=== PATIENT | female | born 1990 | race Caucasian/White ===

== ENCOUNTER 2017-11-21 08:59 | Emergency (ER) | payer MEDICAID, SELFPAY ==
[2017-11-21 08:59] VITALS: BP 146/99; PULSE 86; RESP 18; TEMP 36.6; O2SAT 97; BMI 32.5
--- NOTE | 2017-11-21 09:15 | ED.DCSUM_ITS ---
- ER Visit Summary Date of Service: 11/21/17 Chief Complaint: Right ear and jaw pain History of Present Illness: The patient is a 27 F who presents with pain in her right ear radiating to her right jaw. No exacerbating or relieving factors. It is not worse with swallowing. She tried ibuprofen with little relief. She denies any associated symptoms. No URI-like illness. No congestion rhinorrhea sore throat. No cough. Physical Examination: Afebrile vitals are stable Tympanic membranes are clear Widespread dental decay with focal decay and tenderness on percussion of the right second mandibular molar no focal abscess amenable to incision and drainage Heart regular rate and rhythm Lungs are clear Test Results: Not indicated Emergency Department Course and Treatment: I believe the patient's ear pain is referred to it to a dental origin. She is very tender on percussion of the right second mandibular molar. There is no abscess amenable to incision and drainage. She was prescribed penicillin and advised to use anti-inflammatories for pain and follow-up with a dentist. Treatment Plan: [] Disposition: Discharge Impression: Odontalgia This note was generated with [employer] dictation software. It may contain incorrect words, spelling, and punctuation that were not noted in review of the chart prior to signing ED Disposition - Plan for ED Patient: Chief Complaint: Ear Problem Referrals: Care Physician,No Primary [Primary Care Provider] -
--- NOTE | 2017-11-21 09:15 | ED.DEP ---
ED Disposition - Plan for ED Patient: Chief Complaint: Ear Problem Instructions: ED Tooth Pain Prescriptions: Penicillin V Potassium 500 mg PO 4X/DAY #40 tab Referrals: Care Physician,No Primary [Primary Care Provider] -
[2017-11-21 09:32] VITALS: PULSE 89; RESP 22
--- NOTE | 2017-11-21 09:35 | ED.RN ---
THIS NURSE REVIEWED D/C INSTRUCTIONS WITH PT. PT VERBALIZED UNDERSTANDING OF INSTRUCTIONS. PT DENIES FURTHER NEEDS OR QUESTIONS AT THIS TIME. PT AMBULATES FROM ROOM ON OWN WITHOUT ASSISTANCE FROM STAFF
== END 2017-11-21 09:36 | disposition home or self-care (01) ==
PROVIDERS: Emergency Provider Emergency Medicine
DX: K08.89 Other specified disorders of teeth and supporting structures (principal); K02.9 Dental caries, unspecified
CPT/HCPCS: 99282

== ENCOUNTER 2019-07-09 16:52 | Emergency (ER) | payer MEDICAID, SELFPAY ==
[2019-07-09 16:54] VITALS: BP 119/73; PULSE 97; RESP 16; TEMP 36.9; O2SAT 98; BMI 34.4
--- NOTE | 2019-07-09 17:07 | ED.DCSUM_ITS ---
- ER Visit Summary Date of Service: 07/09/19 Chief Complaint: [Injury to left hand] History of Present Illness: The patient is a 29 F [presents to the emergency department with multiple injuries to her left hand over the course of the last week. Patient states that she initially injured her hand about a week ago when she had it smashed between a log and a cement block. Patient states the following day she accidentally hit with a hammer. Patient states that 2 days ago she accidentally caught her left hand in a bathroom door. Patient is right- hand dominant. Patient denies recent illness.] Physical Examination: [Right hand-patient has some mild soft tissue swelling over the third MCP joint. Patient has no obvious deformity. There is no ecchymosis or bruising. She is neurovascular intact. She moves all digits without difficulty.] Test Results: [X-rays of the left hand obtained read by myself is normal.] Emergency Department Course and Treatment: [Given an Víctor wrap.] Treatment Plan: [Patient to follow-up with primary care physician in 5 to 7 days.] Disposition: [Discharged home in stable condition.] Impression: [Contusion left hand] This note was generated with [employer] dictation software. It may contain incorrect words, spelling, and punctuation that were not noted in review of the chart prior to signing ED Disposition - Plan for ED Patient: Referrals: Care Physician,No Primary [Primary Care Provider] -
--- NOTE | 2019-07-09 17:10 | RAD_ITS ---
STUDY: X-RAY - LEFT HAND REASON FOR EXAM: Female, 29 years old. Injury. Pain. TECHNIQUE: 3 view(s) of the hand. COMPARISON: None. FINDINGS: Normal radiocarpal articulation. Normal distal radioulnar joint. Normal visualized carpal bones. Normal carpal articulations Normal carpometacarpal articulation of the thumb. Normal second through fifth carpometacarpal joints. Normal metacarpi. Normal metacarpophalangeal joint of the thumb. Normal interphalangeal joint of the thumb. Normal proximal and distal phalanges of the thumb. Normal metacarpophalangeal joints of the second through fifth fingers. Normal proximal and distal interphalangeal joints of the second through fifth fingers. Normal phalanges of the second through fifth fingers. The soft tissue structures are unremarkable. RAD/Hand Min 3 Views IMPRESSION: Normal x-ray examination of the hand. Electronically Signed: Ham Mcmillan MD at 17:37 EDT , Service support ,
--- NOTE | 2019-07-09 17:18 | ED.DEP ---
ED Disposition - Plan for ED Patient: Instructions: CONTUSION, Hand Prescriptions: Naproxen [Naprosyn] 500 mg PO BID PRN #20 tab Prescription Printed Referrals: Care Physician,No Primary [Primary Care Provider] - Aric White MD [STAFF PHYSICIAN] - 5-7 Days
[2019-07-09 17:30] VITALS: PULSE 89; RESP 14; O2SAT 96
== END 2019-07-09 17:30 | disposition home or self-care (01) ==
LOC: ED 17:10
PROVIDERS: Emergency Provider Emergency Medicine
DX: S60.222A Contusion of left hand, initial encounter (principal); W23.0XXA Caught, crushed, jammed, or pinched between moving objects, initial encounter; Y93.9 Activity, unspecified; Y92.9 Unspecified place or not applicable; Y99.9 Unspecified external cause status
CPT/HCPCS: 73130; 99282

== ENCOUNTER 2022-12-28 10:00 | Emergency (ER) | payer MEDICAID, SELFPAY ==
[2022-12-28 10:01] VITALS: BP 109/93; PULSE 102; RESP 18; TEMP 36.6; O2SAT 100; BMI 26.6
[2022-12-28] MEDS: Tetracaine 0.5% Ophthalmic Bottle 1 DRP OPHTHALMIC (10:23)
[2022-12-28] MEDS: Fluorescein 1 MG STRIP 1 STRIP OPHTHALMIC (10:23)
--- NOTE | 2022-12-28 10:24 | EDS_ITS ---
HPI History of Present Illness Chief Complaint: Eye Problem Narrative Narrative: 32-year-old female who denies significant past medical history [facility] with right eye pain that began last evening. She awoke in the middle the night and stated that her right eye was bothering her. She denies any fevers or chills. No exudate from the eye or matting shut. No loss of vision. No exacerbating or alleviating factors. She does not wear contact lenses. She states that her right eye feels dry. Additionally, she states that she was sent to the emergency department to rule out glaucoma. PFSH PFS Medical History no medical history no medical history Home Medications naproxen 500 mg tablet 500 mg PO BID PRN #20 tabs 07/09/19 [Rx Last Taken Unknown] Allergy/AdvReac Type Severity Reaction Status Date / Time No Known Allergies Allergy Verified 12/28/22 10:03 Family History no significant family his Surgical History no surgical history Social History Smoking Status: Never smoker ROS ROS ED ROS Narrative Constitutional: No fever, no chills. HEENT: No sore throat. No neck pain. No loss of vision. No rhinorrhea. Right eye pain since last evening. Feels dry in right eye. Cardiovascular: No chest pain. No palpitations. No pedal edema. Respiratory: No cough, no shortness of breath. Abdominal: No abdominal pain. No nausea. No vomiting. Genitourinary: No dysuria. No hematuria. Musculoskeletal: No myalgias. No arthralgias. Neurologic: No headaches. No dizziness. No lightheadedness. Skin: No rash. No change in color. Psychiatric: No depression. No anxiety. EXAM Physical Exam Narrative Exam Narrative: Afebrile. Vital signs noted. HEENT: Normocephalic. Atraumatic. PERRL, EOMI. right pupil reactive to light, not fixed at midpoint, neck soft and supple. No point tenderness or step off. Cardiovascular: Regular rate and rhythm. No murmurs, rubs, or gallops appreciated. Respiratory: No tachypnea. Lungs clear to auscultation bilaterally. Gastrointestinal: Abdomen soft, nontender, with normoactive bowel sounds. No rebound or guarding. Neurological: Awake. Alert. Nonfocal, nonlateralizing. Skin: No rash. Normal color. No pallor. Musculoskeletal: No pedal edema. Full range of motion extremities. Const Vital Signs: 12/28/22 10:01 Temperature 97.9 F Temperature Source Temporal Pulse Rate 102 H Respiratory Rate 18 Blood Pressure 109/93 H Blood Pressure Mean 98 Pulse Ox 100 Oxygen Delivery Method Room Air MDM MDM MDM Narrative Medical decision making narrative: Given the reactivity of her right pupil, I do feel the glaucoma is less likely. She may have foreign body. Tetracaine will be instilled in the right eye and visual acuity obtained. I will also administer fluorescein and attempt Kamari-Pen reading. Examination under fluorescein shows no evidence of foreign body, negative Yovany sign. Kamari-Pen examination revealed intraocular pressures of 13 and 16, but was mildly limited secondary to the patient's full inability to tolerate the procedure. I will discuss the patient with ophthalmology, Dr. Medley for close follow-up. He states that he will see her later today, and the RN is arranging with his desktop support engineer the time for her to be seen. I stressed the importance of follow-up today with him to the patient. At this point in time, I do feel she can be discharged safely home with follow-up to the specialist. Return instructions to the emergency department were reviewed. Disposition is discharged home in stable condition. History & Record Review Discussion w/independent historian: Patient Additional record(s) reviewed:: Prior ED visit Discharge Plan Triage Chief Complaint: Eye Problem ED Provider: Jony Hart Dx/Rx/DC Orders Clinical Impression: Acute right eye pain Instructions: ED Pain, Acute, Uncertain Cause Prescriptions: No Action naproxen 500 MG tablet 500 mg PO BID PRN Qty: 20 0RF Primary Care Provider: Care Physician,No Primary Referrals: Timi Delgado MD [Med Staff - Active Staff] - As soon as possible Care Physician,No Primary [Primary Care Provider] - Activity Restrictions/Additional Instructions: Go to Dr. Medley today Disposition Disposition: Home, Self Care
== END 2022-12-28 10:58 | disposition home or self-care (01) ==
LOC: ED 10:48
PROVIDERS: Emergency Provider Emergency Medicine; Visit Provider Emergency Medicine
DX: H57.11 Ocular pain, right eye (principal)
CPT/HCPCS: 99282

== ENCOUNTER 2023-03-19 09:27 | Observation (INO) | payer MEDICAID, SELFPAY ==
[2023-03-19] VITALS (10 sets, daily range): BP systolic 99–109; BP diastolic 65–85; PULSE 88–116; RESP 14–18; TEMP 36.1–36.9; O2SAT 95–100; BMI 26.4; BMI 25.9
--- NOTE | 2023-03-19 10:20 | EX.ED.DYSGE1 ---
HPI History of Present Illness Chief Complaint: Abd Pain PFSH PFS Medical History no medical history Allergy/AdvReac Type Severity Reaction Status Date / Time No Known Allergies Allergy Verified 03/19/23 09:29 Family History no significant family his Surgical History no surgical history Social History Smoking Status: Never smoker EXAM Physical Exam Const Vital Signs: 03/19/23 09:28 03/19/23 11:25 Temperature 97.9 F Temperature Source Temporal Pulse Rate 116 H 110 H Respiratory Rate 16 Blood Pressure 106/85 H Blood Pressure Mean 92 Pulse Ox 100 Oxygen Delivery Method Room Air MDM MDM MDM Narrative Medical decision making narrative: HISTORY OF PRESENT ILLNESS: 32-year-old female endorses 1 day of abdominal pain that she describes started on her bellybutton and she points to her right upper quadrant. She denies any right lower quadrant abdominal pain. She states nausea and vomiting as well. Denies chest pain shortness of breath. No abdominal surgeries. Last bowel was yesterday. No melena hematochezia. Denies any fever. Denies any vaginal bleeding or discharge. She is not currently sexually active REVIEW OF SYSTEMS: Pertinent positives: Abdominal pain nausea vomiting Pertinent negatives: Fever, constipation diarrhea PHYSICAL EXAM: Nursing triage notes reviewed, Vital signs reviewed Constitutional: please see mdm HENT: MMM Eyes: Pupils equal round and reactive to light, Extraocular muscles intact Neck: No stridor, no JVD, full neck ROM Lungs: Clear to auscultation, No wheezing or rales. No increased work of breathing, no conversational dyspnea, no accessory muscle use, no nasal flaring. No respiratory distress noted Heart: Regular rate and rhythm, No murmurs, No rubs and No gallops, 2+ distal pulses (radial, femoral, posterior tibial) in all extremities Abdomen: Soft, right upper quadrant TTP, positive Hennessy sign, there was some right lower quadrant tenderness but the preponderance of tenderness in the right upper quadrant, initial exam but no rigidity, rebound or guarding, no obvious peritoneal signs, no palpable pulsatile abdominal masses, no auscultated abdominal bruit : No CVAT Extremities: No edema Neuro: No focal neurological deficits, cranial nerves II through XII intact, 5/5 strength in all extremities. Intact sensation to light touch in all extremities, 2+ reflexes bilateral patella tendons. Normal gait. No ataxia. Skin: No rash or lesions noted MEDICAL DECISION MAKING: Chief Complaint: Abdominal pain nausea vomiting External records reviewed:No recent advanced imaging of the abdomen or pelvis Factors affecting care: None Social determinants of health: Never smoker History obtained from others: The patient's family Consults: General surgery (Dr. Lee) who agreed to take the patient to the operating room for surgical intervention of acute appendicitis ALL IMAGES (IF OBTAINED) HAVE BEEN PERSONALLY REVIEWED AND INTERPRETED BY MYSELF. MDM Narrative: Patient was hemodynamically stable initially tachycardic but afebrile and nontoxic-appearing on arrival quadrant tenderness and positive Hennessy sign. There are no peritoneal signs but initial abdominal exam. I considered the following differential diagnosis: Pancreatitis, acute cholecystitis, surgical pathology abdomen, gastritis, esophagitis, appendicitis Labs remarkable for elevation in white blood cell count, hyperglycemia. Imaging remarkable for cholelithiasis, positive sonographic Hennessy sign. At this point I consulted general surgery spoke to Dr. Lee who requested a CT given liver abnormality found on ultrasound. CT scan returned surprisingly with acute appendicitis. This explains further the patient's white count and discomfort. Dr. Lee agreed to take the patient to the operating room for definitive management. She is given Zosyn and kept n.p.o. given fluids and pain control. Hyperglycemia is treated with insulin. No evidence of DKA with a normal bicarb and no evidence of an anion gap on BMP. The patient and/or family, caregivers express understanding. The patient and/or family, caregivers agrees with the plan. Total critical care time today provided was at least 35 minutes. This excludes separately billable procedures. Critical care time (if documented) is secondary to the patient having high probability of clinically significant/life threatening deterioration in the patient's condition which required my urgent intervention. Shared decision making: I will have a discussion with the patient and or visitors regarding risk/benefits of further testing or admission. They will be made aware of of the risk/benefits inherent in this decision they will be given the opportunity to voice understanding. Lab Data Attestation: I reviewed the patient's lab results. Lab results narrative: EKG with sinus tachycardia at 104, normal axis, normal intervals, no obvious STEMI CBC with leukocytosis suggestive of systemic inflammation, no anemia or thrombocytopenia BMP with mild hyponatremia, no other significant electrolyte abnormalities, no anion gap to suggest endorgan hypoperfusion, no acute kidney injury Lactate is wnl indicating no end-organ hypoperfusion and/or hypoxia. LFTs show no evidence of hepatobiliary pathology. Urine preg Negative UA without evidence of infection Labs: Laboratory Results - last 24 hr 03/19/23 03/19/23 03/19/23 09:37 09:37 09:37 WBC 16.4 H RBC 5.04 Hgb 14.7 Hct 41.4 MCV 82.1 MCH 29.2 MCHC 35.5 RDW Std Deviation 35.3 RDW Coeff of Sherry 12.0 Plt Count 284 MPV 9.4 Immature Gran % (Auto) 0.400 Neut % (Auto) 80.3 H Lymph % (Auto) 13.3 L [place] % (Auto) 5.1 Eos % (Auto) 0.5 Baso % (Auto) 0.4 Absolute Neuts (auto) 13.2 H Absolute Lymphs (auto) 2.18 Nucleated RBC % 0 Sodium 133 L Potassium 4.1 Chloride 99 Carbon Dioxide 25.0 Anion Gap 9 BUN 10 Creatinine 0.72 Estim Creat Clear Calc 103.07 Est GFR (MDRD) Af Amer 119 Est GFR (MDRD) Non-Af 99 BUN/Creatinine Ratio 13.9 Glucose 397 H Hemoglobin A1c 11.3 H Lactic Acid Calcium 9.3 Total Bilirubin 0.90 Direct Bilirubin 0.25 AST 8 L ALT 15 Alkaline Phosphatase 83 Total Protein 7.7 Albumin 3.7 Globulin 4.0 Lipase 24 Urine Color Urine Clarity Urine pH Ur Specific Fenton Urine Protein Urine Glucose (UA) Urine Ketones Urine Occult Blood Urine Nitrite Urine Bilirubin Urine Urobilinogen Ur Leukocyte Esterase Urine RBC Urine WBC Ur Squamous Epith Cells Urine Bacteria Urine Mucus Urine Test 03/19/23 03/19/23 11:00 11:56 WBC RBC Hgb Hct MCV MCH MCHC RDW Std Deviation RDW Coeff of Sherry Plt Count MPV Immature Gran % (Auto) Neut % (Auto) Lymph % (Auto) [place] % (Auto) Eos % (Auto) Baso % (Auto) Absolute Neuts (auto) Absolute Lymphs (auto) Nucleated RBC % Sodium Potassium Chloride Carbon Dioxide Anion Gap BUN Creatinine Estim Creat Clear Calc Est GFR (MDRD) Af Amer Est GFR (MDRD) Non-Af BUN/Creatinine Ratio Glucose Hemoglobin A1c Lactic Acid 1.7 Calcium Total Bilirubin Direct Bilirubin AST ALT Alkaline Phosphatase Total Protein Albumin Globulin Lipase Urine Color Yellow Urine Clarity Clear Urine pH 5.0 Ur Specific Fenton 1.020 Urine Protein 15 H Urine Glucose (UA) 1000 H Urine Ketones 15 H Urine Occult Blood Negative Urine Nitrite Negative Urine Bilirubin Negative Urine Urobilinogen Normal Ur Leukocyte Esterase Negative Urine RBC 0 SEEN Urine WBC 0 SEEN Ur Squamous Epith Cells 0 SEEN Urine Bacteria 0 SEEN Urine Mucus 0 SEEN Urine Test Negative Radiography Diagnostic Testing: Clinical Impression(s) from Imaging Studies Gallbladder Ultrasound 03/19/23 10:33 IMPRESSION: Cholelithiasis with a reported positive sonographic Hennessy''s sign and no gallbladder wall thickening nor pericholecystic fluid. 1.8 x 1.6 x 2.0 cm round echogenic focus within the liver which may reflect a hemangioma or possible focal fat. 0.9 x 0.8 cm right renal cyst. Electronically Signed: Norma Dickerson MD at 12:49 EDT , Abdomen/Pelvis CT 03/19/23 14:05 IMPRESSION: Acute uncomplicated appendicitis. Possible 2 cm hemangioma of the right hepatic lobe although this is not a dynamic contrast exam, necessary to confirm hemangioma. Electronically Signed: Ham Mcmillan MD at 15:25 EDT , ADDENDUM: 03/19/23 1536 IMPRESSION: Acute uncomplicated appendicitis. Possible 2 cm hemangioma of the right hepatic lobe although this is not a dynamic contrast exam, necessary to confirm hemangioma. N.B. : The above Results were Read Back by Ham Mcmillan MD to Ryan Maharaj DO, and understanding confirmed on 03/19/2023 15:29:08 (ET). Electronically Signed: Ham Mcmillan MD at 15:25 EDT , Discharge Plan Triage Chief Complaint: Abd Pain ED Provider: Ryan Maharaj Dx/Rx/DC Orders Primary Care Provider: Care Physician,No Primary Referrals: Care Physician,No Primary [Primary Care Provider] -
--- NOTE | 2023-03-19 10:33 | US_ITS ---
Examination: Right upper quadrant ultrasound. INDICATION: Right abdominal pain. TECHNIQUE: A dedicated right upper quadrant ultrasound was obtained including Doppler images. COMPARISON: None FINDINGS: Within the right hepatic lobe, adjacent to the gallbladder fossa, there is a well circumscribed echogenic 1.8 x 1.6 x 2.0 cm focus with no internal vascularity. There is a gallstone within the gallbladder. There is no pericholecystic fluid nor gallbladder wall thickening. There is a reported positive sonographic Hennessy''s sign. The common bile duct measures 4.4 mm. The visualized pancreas is within normal limits. There is nonvisualization of the tail the pancreas. The right kidney measures 10.6 cm in length. There is a 0.9 x 0.8 cm renal cyst. There is no hydronephrosis. US/Gallbladder IMPRESSION: Cholelithiasis with a reported positive sonographic Hennessy''s sign and no gallbladder wall thickening nor pericholecystic fluid. 1.8 x 1.6 x 2.0 cm round echogenic focus within the liver which may reflect a hemangioma or possible focal fat. 0.9 x 0.8 cm right renal cyst. Electronically Signed: Norma Dickerson MD at 12:49 EDT ,
--- NOTE | 2023-03-19 10:33 | EKG12_ITS ---
Test Reason : Blood Pressure : / mmHG Vent. Rate : 104 BPM Atrial Rate : 104 BPM P-R Int : 138 ms QRS Dur : 076 ms QT Int : 354 ms P-R-T Axes : 056 048 051 degrees QTc Int : 465 ms Sinus tachycardia Low voltage QRS Nonspecific ST abnormality Abnormal ECG Confirmed by ANYI BUSTOS, RANDI ([id number]), marketing editor SHAKEEL AHUMADA ([id number]) on 03/21/2023 10:59:39 A M Referred By: DENICE Confirmed By:MIRIAM DE SANTIAGO MD
[2023-03-19] MEDS: Morphine 4 MG/ML Syringe IV ×4 (10:58→16:59)
[2023-03-19] MEDS: 0.9% Normal Saline 1,000 ML 1000 ML IV (10:58)
[2023-03-19] MEDS: Ondansetron 4 MG/2 ML Vial IV (10:59)
[2023-03-19 11:15] LABS: Absolute Lymphocyte Count 2.18 X10^3/uL (0.83-4.51); Absolute Neutrophil Count 13.2 X10^3/uL (2.0-7.7); Basophil# 0.07 X10^3/uL; Basophil% 0.4 % (0-1); Eosinophil# 0.08 X10^3/uL; Eosinophils% 0.5 % (0-5); Hematocrit 41.4 % (37-47); Hemoglobin 14.7 g/dL (12.0-15.0); Lymphocyte # 2.18 X10^3/ul (0.83-4.51); Lymphocyte % 13.3 % (19-41); Mean Corp Hgb Conc 35.5 g/dL (32-36); Mean Corpuscular Hgb 29.2 pg (27.0-32.0); Mean Corpuscular Volume 82.1 fL (81-99); Mean Platelet Vol. 9.4 fl (6.2-12.0); Monocyte# 0.84 X10^3/uL; Monocyte% 5.1 % (0-10); NRBC Flagged by Analyzer 0 % (0-5); Neutrophil # 13.18 X10^3/uL (2.7-7.7); Neutrophil % 80.3 % (47-70); Platelet Count 284 K/mm3 (150-450); RBC Distribution Width SD 35.3 fl (35.1-43.9); Red Blood Count 5.04 M/mm3 (4.2-5.4); White Blood Count 16.4 K/mm3 (4.4-11.0)
[2023-03-19 11:29] LABS: AST(SGOT) 8 U/L (15-37); Alanine Aminotransfer ALT/SGPT 15 U/L (13-56); Albumin, Serum 3.7 g/dL (3.2-5.0); Alkaline Phosphatase 83 U/L (45-117); Anion Gap 9 (5-15); BUN 10 mg/dL (7-18); BUN/Creat Ratio 13.9 RATIO (10-20); Bilirubin, Direct 0.25 mg/dL (0.00-0.30); Calcium,Total 9.3 mg/dL (8.5-10.1); Chloride 99 mmol/L (98-107); Creatinine, Serum 0.72 mg/dL (0.55-1.02); EST Glomerular Filtration Rate 99 mL/min (>60); Est Glom Filt Rate - Afr Amer 119 mL/min (>60); Estimated Creatinine Clearance 103.07 ml/min; Glucose 397 mg/dL (74-106); Lipase 24 U/L (13-75); Potassium 4.1 mmol/L (3.5-5.1); Protein, Total 7.7 g/dL (6.4-8.2); Sodium Level 133 mmol/L (136-145)
--- NOTE | 2023-03-19 11:31 | ED.RN ---
DELAY IN PRIMARY NURSE SEEING THIS PATIENT DUE TO ACUITY OF OTHER CRITICAL CARE PATIENT IN ED.
[2023-03-19 11:43] LABS: Lactic Acid 1.7 mmol/L (0.4-1.9)
[2023-03-19 12:01] LABS: Bacteria 0 SEEN /hpf (None Seen); Mucous, Urine 0 SEEN /hpf (<or=2+); Red Blood Cells-Urine 0 SEEN /hpf (0-5); Squamous Epithelial Cells - UA 0 SEEN /hpf (5-10); White Blood Cells 0 SEEN /hpf (0-5)
[2023-03-19 12:02] LABS: Color, Urine Yellow (Yellow); Glucose, Dipstick 1000 mg/dl (Normal); Ketone-Dipstick 15 mg/dl (Negative); Leukocyte Esterase-Dipstick Negative /ul (Negative); Nitrite-Dipstick Negative (Negative); Occult Blood-Urine Negative /ul (Negative); Protein-Dipstick 15 mg/dl (Negative); Urine Bilirubin Dipstick Negative (Negative); Urine Clarity Clear (Clear); Urine Urobilinogen Normal (Normal)
[2023-03-19 12:08] LABS: Internal QC Validated? YES +Cl - CLEAR BKGD; Pregnancy, Urine Negative Negative
--- NOTE | 2023-03-19 14:05 | CT_ITS ---
We are attempting to reach an attending provider to discuss findings. An addendum with communication details will be sent when the communication is complete. STUDY: CT ABDOMEN AND PELVIS WITH CONTRAST REASON FOR EXAM: Female, 32 years old. RIGHT SIDED PAIN. LIVER MASS? RADIATION DOSAGE (If Supplied By Facility): CTDIvol = ( 14.20 ) mGy, DLP = ( 1092.91 ) mGycm TECHNIQUE: Transaxial images were obtained from the dome of the diaphragm to the symphysis pubis without oral contrast. IV 100mL [id number]-[id number] was administered. Sagittal and coronal images were reconstructed. Individualized dose optimization techniques were used for this CT. COMPARISON: Ultrasound of the same day showing probable hemangioma.. FINDINGS: The visualized lung bases are unremarkable. The visualized portions of the heart are within normal limits. Liver has normal shape and size. There is a 2 cm ill-defined subtle low density mass in the anterior segment of the right hepatic lobe alongside the gallbladder fossa. This is consistent with the findings seen on ultrasound. Although it may represent a hemangioma, this is not a dynamic contrast study and therefore hemangioma is not proved. Normal gallbladder and extrahepatic biliary system. Normal spleen. Normal pancreas. Normal bilateral adrenal glands. Normal right kidney. Normal left kidney. Normal visualized stomach. Normal small intestine. Normal colon. There is a tubular, thick-walled appendix (>7mm), consistent with acute appendicitis. Appendix measures as much as 1.1 cm across. There are appendicoliths. There is localized fluid and periappendiceal stranding. No perforation or abscess. Normal abdominal aorta. Normal inferior vena cava. Normal retroperitoneum. Normal urinary bladder. Normal abdominal wall. Normal osseous structures. CT/Abdomen/Pelvis W IV Cont ONLY IMPRESSION: Acute uncomplicated appendicitis. Possible 2 cm hemangioma of the right hepatic lobe although this is not a dynamic contrast exam, necessary to confirm hemangioma. Electronically Signed: Ham Mcmillan MD at 15:25 EDT ,
[2023-03-19 14:50] LABS: Hemoglobin A1c 11.3 % (3.8-5.6)
--- NOTE | 2023-03-19 15:05 | HP.PCM.SX_ITS ---
HPI - General General Date of Admission: 03/19/23 HPI Narrative MALIHA CARCAMO, is a 32 F who presents to the ER due to 2 right-sided abdominal pain and some nausea vomiting. Patient states started about 4 PM yesterday. Patient did have vomiting last night had some nausea this morning. Was able to drink a cup of milk about 8 AM but did come into the ER and they gave her stuff for nausea. Patient white blood count 16.4. Patient's glucose is also 397 with an A1c of 11.3?new diagnosis. Patient does not have a PCP as well. Patient CT abdomen pelvis does show acute appendicitis. Patient also on ultrasound the gallbladder which did show a gallstone normal wall no pericholecystic fluid. [facility] Medical History (Updated 03/19/23 @ 16:[address] Rebecca Lee MD) Diabetes Allergy/AdvReac Type Severity Reaction Status Date / Time No Known Allergies Allergy Verified 03/19/23 09:29 Family History no significant family his Surgical History (Updated 03/19/23 @ 16:[address] Rebecca Lee MD) History of Social History Smoking Status: Never smoker Vital Signs Vital Signs Vital Signs: 03/19/23 09:28 03/19/23 11:25 Temperature 97.9 F Temperature Source Temporal Pulse Rate 116 H 110 H Respiratory Rate 16 Blood Pressure 106/85 H Blood Pressure Mean 92 Pulse Ox 100 Oxygen Delivery Method Room Air Weight Weight: 164 lb Body Mass Index (BMI) 26.4 Physical Exam Const alert, oriented x3 and no apparent distress HEENT normocephalic and head/scalp atraumatic Resp normal respiratory effort Cardio regular rate GI soft to palpation; Negative for non-distended Palpation: tender RLQ; Negative for guarding Extremity no clubbing, cyanosis or edema Neuro CN's II-XII intact bilaterally Psych mental status grossly normal Results Lab / Micro Data Result Diagrams: 03/19/23 09:37 03/19/23 09:37 Labs: Laboratory Results - last 24 hr 03/19/23 09:37: WBC 16.4 H, RBC 5.04, Hgb 14.7, Hct 41.4, MCV 82.1, MCH 29.2, MCHC 35.5, RDW Std Deviation 35.3, RDW Coeff of Sherry 12.0, Plt Count 284, MPV 9.4, Immature Gran % (Auto) 0.400, Neut % (Auto) 80.3 H, Lymph % (Auto) 13.3 L, [place] % (Auto) 5.1, Eos % (Auto) 0.5, Baso % (Auto) 0.4, Absolute Neuts (auto) 13.2 H, Absolute Lymphs (auto) 2.18, Nucleated RBC % 0 03/19/23 09:37: Sodium 133 L, Potassium 4.1, Chloride 99, Carbon Dioxide 25.0, Anion Gap 9, BUN 10, Creatinine 0.72, Estim Creat Clear Calc 103.07, Est GFR (MDRD) Af Amer 119, Est GFR (MDRD) Non-Af 99, BUN/Creatinine Ratio 13.9, Glucose 397 H, Calcium 9.3, Total Bilirubin 0.90, Direct Bilirubin 0.25, AST 8 L, ALT 15, Alkaline Phosphatase 83, Total Protein 7.7, Albumin 3.7, Globulin 4.0, Lipase 24 03/19/23 09:37: Hemoglobin A1c 11.3 H 03/19/23 11:00: Lactic Acid 1.7 03/19/23 11:56: Urine Color Yellow, Urine Clarity Clear, Urine pH 5.0, Ur Specific [place] 1.020, Urine Protein 15 H, Urine Glucose (UA) 1000 H, Urine Ketones 15 H, Urine Occult Blood Negative, Urine Nitrite Negative, Urine Bilirubin Negative, Urine Urobilinogen Normal, Ur Leukocyte Esterase Negative, Urine RBC 0 SEEN, Urine WBC 0 SEEN, Ur Squamous Epith Cells 0 SEEN, Urine Bacteria 0 SEEN, Urine Mucus 0 SEEN, Urine Test Negative Radiology Impression Gallbladder Ultrasound 03/19/23 10:33 IMPRESSION: Cholelithiasis with a reported positive sonographic Hennessy''s sign and no gallbladder wall thickening nor pericholecystic fluid. 1.8 x 1.6 x 2.0 cm round echogenic focus within the liver which may reflect a hemangioma or possible focal fat. 0.9 x 0.8 cm right renal cyst. Electronically Signed: Norma Dickerson MD at 12:49 EDT , Assessment & Plan Assessment/Plan (1) Acute appendicitis: (2) Diabetes: PLAN: Plan 1. Discussed procedure laparoscopic appendectomy, possible open along with the risk but not limited to bleeding, infection/abscess, injury to another organ (small bowel, colon, etc.), adhesion, hernia at incision sites, and anesthesia. Patient no further question this time. We will consult hospitalist for help managing this new diagnosis of diabetes. Rebecca Lee M.D. Pager: [phone] [facility] [address] [place] [address], [address] [place] [address] Office: [phone]
[2023-03-19] MEDS: 0.9% Normal Saline 1,000 ML 999 ML IV (15:21)
--- NOTE | 2023-03-19 16:13 | NURSING ---
SURGERY [facility] ACUTE APPENDICITIS
--- NOTE | 2023-03-19 16:32 | NURSING ---
SURGERY THEN 307
--- NOTE | 2023-03-19 16:44 | PN_ITS ---
Subjective Subjective Patient is a 32-year-old female with a past medical history as outlined was admitted through the ED to the service of general surgery for acute appendicitis. Her blood sugar was elevated at 397 and A1c was 11.7 so h ospitalist service was consulted for medical management. Patient states she was told when she was about 10 or 11 that she was borderline diabetic but she has not been on any treatment and has not followed up with a doctor since. She denies any frequency of urination or excessive appetite and says that she has lost a bit of weight over the last year but she was not trying hard to lose weight. 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 Review of systems was otherwise negative. Vitals in the ED were blood pressure 109/82, pulse rate of 91, respirate rate of 14 and temperature of 97 Fahrenheit.CBC showed Hb of 14.7 with wbc of 16.4 and platelets of 284. Chemistry showed sodium of 133 and bicarb of 25 as well as Cr of 0.72. CT abdomen shwoed acute uncomplicated appendicitis and possible 2cm hemangioma of the right hepatic lobe. Objective Data Objective Data Vital Signs: Vital Signs Temp Pulse Resp BP Pulse Ox O2 Del Method 97 F L 91 14 109/82 H 97 Room Air 03/19/23 16:35 03/19/23 16:35 03/19/23 16:35 03/19/23 16:35 03/19/23 16:35 03/19/23 16:35 Oxygen Delivery Method Room Air Weight: 164 lb Body Mass Index (BMI) 26.4 Intake & Output: Intake and Output for Last 24 Hours 03/17/23 03/18/23 03/19/23 23:59 23:59 23:59 Intake Total 2099 / 2099 Balance 2099 / 2099 Lab / Micro Data Result Diagrams: 03/19/23 09:37 03/19/23 09:37 Labs: Laboratory Results - last 24 hr 03/19/23 09:37: WBC 16.4 H, RBC 5.04, Hgb 14.7, Hct 41.4, MCV 82.1, MCH 29.2, MCHC 35.5, RDW Std Deviation 35.3, RDW Coeff of Sherry 12.0, Plt Count 284, MPV 9.4, Immature Gran % (Auto) 0.400, Neut % (Auto) 80.3 H, Lymph % (Auto) 13.3 L, [place] % (Auto) 5.1, Eos % (Auto) 0.5, Baso % (Auto) 0.4, Absolute Neuts (auto) 13.2 H, Absolute Lymphs (auto) 2.18, Nucleated RBC % 0 03/19/23 09:37: Sodium 133 L, Potassium 4.1, Chloride 99, Carbon Dioxide 25.0, Anion Gap 9, BUN 10, Creatinine 0.72, Estim Creat Clear Calc 103.07, Est GFR (MDRD) Af Amer 119, Est GFR (MDRD) Non-Af 99, BUN/Creatinine Ratio 13.9, Glucose 397 H, Calcium 9.3, Total Bilirubin 0.90, Direct Bilirubin 0.25, AST 8 L, ALT 15, Alkaline Phosphatase 83, Total Protein 7.7, Albumin 3.7, Globulin 4.0, Lipase 24 03/19/23 09:37: Hemoglobin A1c 11.3 H 03/19/23 11:00: Lactic Acid 1.7 03/19/23 11:56: Urine Color Yellow, Urine Clarity Clear, Urine pH 5.0, Ur Specific [place] 1.020, Urine Protein 15 H, Urine Glucose (UA) 1000 H, Urine Ketones 15 H, Urine Occult Blood Negative, Urine Nitrite Negative, Urine Biliru bin Negative, Urine Urobilinogen Normal, Ur Leukocyte Esterase Negative, Urine RBC 0 SEEN, Urine WBC 0 SEEN, Ur Squamous Epith Cells 0 SEEN, Urine Bacteria 0 SEEN, Urine Mucus 0 SEEN, Urine Test Negative Radiography Diagnostic Testing: Radiology Impression Gallbladder Ultrasound 03/19/23 10:33 IMPRESSION: Cholelithiasis with a reported positive sonographic Hennessy''s sign and no gallbladder wall thickening nor pericholecystic fluid. 1.8 x 1.6 x 2.0 cm round echogenic focus within the liver which may reflect a hemangioma or possible focal fat. 0.9 x 0.8 cm right renal cyst. Electronically Signed: Norma Dickerson MD at 12:49 EDT , Abdomen/Pelvis CT 03/19/23 14:05 IMPRESSION: Acute uncomplicated appendicitis. Possible 2 cm hemangioma of the right hepatic lobe although this is not a dynamic contrast exam, necessary to confirm hemangioma. Electronically Signed: Ham Mcmillan MD at 15:25 EDT , ADDENDUM: 03/19/23 1536 IMPRESSION: Acute uncomplicated appendicitis. Possible 2 cm hemangioma of the right hepatic lobe although this is not a dynamic contrast exam, necessary to confirm hemangioma. N.B. : The above Results were Read Back by Ham Mcmillan MD to Ryan Maharaj DO, and understanding confirmed on 03/19/2023 15:29:08 (ET). Electronically Signed: Ham Mcmillan MD at 15:25 EDT , Physical Exam Const alert, oriented x3 and no apparent distress General Appearance: cooperative Neck supple and no JVD Lymph Lymphatic: no lymphadenopathy noted Cardio regular rate, regular rhythm, S1 normal heart sound, S2 normal heart sound and no murmurs GI normal to inspection, nondistended, normoactive bowel sounds GI Narrative: mild right lower quadrant tenderness, no guarding or rebound tenderness. Extremity normal capillary refill, no clubbing, cyanosis or edema and no calf tenderness Skin General Skin Exam: no breakdown Neuro CN's II-XII intact bilaterally, no focal motor deficits, no sensory deficits noted and deep tendon reflexes 2+ bilaterally Motor Exam: strength 5/5 throughout Psych thought process normal and cooperative Appearance: appropriate Assessment & Plan Assessment/Plan (1) Acute appendicitis: (2) Diabetes: PLAN: Plan #Acute appendicitis * management as per general surgery * patient due for surgery today. * #Diabetes mellitus * A1C is 11.7 * Blood sugar was 297. * States she was told when she was about [age] that she was borderline diabetic. She has never followed up with a doctor since but does have a strong history of diabetes in the family * Will place on insulin sliding scale now as she is n.p.o. for surgery. 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 * * DVT prophylaxis; as per primary team Charges/Coding Visit Charges Inpatient E&M: 99438 Subs Hosp L2
--- NOTE | 2023-03-19 17:04 | ED.RN ---
REPORT GIVEN TO NATALIIA
[2023-03-19 17:16] LABS: Bedside Glucose 218 mg/dL (74-106)
--- NOTE | 2023-03-19 17:20 | APP_PTH ---
PATIENT: MALIHA CARCAMO LOC: MS3 U#:[id number] AGE/SX: 32/F [place] [facility] [place]: Dr. Rebecca Lee MD : 1990 BED: 1 DIS: 03/20/2023 SPEC #: [id number] RECD: 03/19/23 18:51 STATUS: KENNY REQ #: [id number] CATHY: 03/19/23 17:[address]: Rebecca Lee DEPT: SURGICAL PATHOLOGY RECD BY: Jayashree Garcia ENTERED: 03/21/23 08:44 SP TYPE: APPENDIX OTHR DR: Dr. Maria C Knapp MD No Primary Care Phys Tissues: Appendix, NOS Procedures: Surgery Specimen Level III HEADER OPERATION: Laparoscopic appendectomy PRE-OP DIAGNOSIS: Acute appendicitis, diabetes TISSUE SUBMITTED: Appendix MICROSCOPIC DIAGNOSIS Appendix, appendectomy: Acute appendicitis. Acute serositis. AM:romana 03/22/2023 MICROSCOPIC DESCRIPTION Slides are reviewed. GROSS DESCRIPTION Received in fixative is one container labeled with the patient's name and designated appendix. The specimen consists of a vermiform appendix measuring 11.0 cm in length and 1.0 cm in average diameter. The serosal aspect is galicia-louis in color. No perforations are identified. Serial sections reveal a patent lumen. Travel Writer sections are submitted in one cassette. / AM:romana 03/21/2023 TC:2 CPT: 73363
[2023-03-19] MEDS: Bupivacaine Mpf 0.5% 30 ML VIAL (18:29)
--- NOTE | 2023-03-19 18:40 | PCM.OPRPT ---
Report of Operation Date of Procedure: 03/19/23 Pre-Operative Diagnosis: Acute appendicitis Post-Operative Diagnosis: Same Surgery/Procedure Performed:: Laparoscopic appendectomy Description of Surgical Findings:: Necrotizing appendicitis nonperforated Surgeon: Rebecca Lee Type of Anesthesia: General/Supplemental Anesthesiologist: Aric Carmona Special Medications: Zosyn 4.5 g IV x1 1 in the ER Specimen's removed: Appendix, culture of the abdominal fluid Estimated Blood Loss (mL): 10 cc Description of Procedure: Indications: 32-year-old female presented to the ER with new right lower quadrant pain yesterday afternoon. On workup she was found to have acute appendicitis on CT and a leukocytosis of 16. Patient was started on antibiotics in the ER for acute appendicitis-Zosyn 4.5 g IV x1 Description of the procedure: The patient was placed on operating table in supine position. General anesthesia was induced. A timeout was completed verifying correct patient, procedure, position and special equipment prior to beginning procedure. Abdomen was prepped and draped in usual sterile fashion. Incision was made in the natural skin line above the umbilicus with a 15 blade scalpel. The fascia was elevated and incised. Entry into the peritoneum was confirmed visually and no bowel was noted in the vicinity of the incision. The Gil trocar was placed under direct vision. Abdomen insufflated with a pressure of 12-15 mmHg. Patient tolerated insertion well. The scope was inserted and the abdomen inspected. No injuries from initial trocar placement were noted. Minimal amount of fluid was seen in the right lower quadrant. An direct visualization 2 -5 mm trocars were placed one above the symphysis pubis and below the hairline and one in the left lower quadrant lateral to the rectus muscle. Care is taken to avoid injury to the bladder and inferior epigastric vessels. The table was placed in Trendelenburg position with the right side elevated. The appendix was grasped with atraumatic grasper and elevated. It was noted to be necrotic/inflamed?nonperforated. A window was developed in the mesoappendix at the point between the base of the appendix and the cecum. An endoscopic 45 mm linear cutting stapler blue load was then used to divide and staple the base of the appendix. Enseal was used to divide the mesoappendix. The appendix was withdrawn into the Gil trocar after being placed endoscopically retrieval bag. Appendix was sent to pathology. The appendiceal stump was then irrigated and hemostasis was assured. Fluid was suctioned no other pathology was identified. Secondary trochars were removed under direct visualization. No bleeding was noted trocar sites. The laparoscope withdrawn and the umbilical trocar removed. The abdomen was allowed to collapse. Local anesthesia of 30 mL of 0.5% Marcaine was used at the incision sites. The umbilical trocar site was closed with the [id number] 0 Vicryl suture. The skin was closed using sutures of 4-0 Monocryl and Steri-Strips. The patient was extubated. The patient tolerated the procedure well and was taken to the postanesthesia care unit in satisfactory condition. Complications none
[2023-03-19 19:21] LABS: Bedside Glucose 303 mg/dL (74-106)
[2023-03-19] MEDS: 0.9% Normal Saline 1,000 ML 130 ML IV (20:24)
[2023-03-19] MEDS: Insulin Lispro 100 UNIT/ML INSULN.PEN SC (22:47)
[2023-03-19 22:58] LABS: Bedside Glucose 303 mg/dL (74-106)
[2023-03-20] VITALS (7 sets, daily range): BP systolic 100–117; BP diastolic 69–84; PULSE 80–104; RESP 16–18; TEMP 36.6–37.2; O2SAT 95–100
[2023-03-20] MEDS: 0.9% Normal Saline 1,000 ML 130 ML IV ×2 (04:00→14:33)
[2023-03-20] MEDS: Acetaminophen 325 MG Tablet 650 MG PO ×2 (04:16→11:22)
[2023-03-20 04:44] LABS: Bedside Glucose 256 mg/dL (74-106)
[2023-03-20] MEDS: Insulin Lispro 100 UNIT/ML INSULN.PEN SC ×2 (06:54→12:26)
[2023-03-20 07:22] LABS: Bedside Glucose 251 mg/dL (74-106)
--- NOTE | 2023-03-20 07:49 | PCM.PN.SRG ---
Subjective Subjective Patient is tolerating diet. Complains abdomen is sore but is better than before surgery. Objective Data Objective Data Vital Signs: Vital Signs Temp Pulse Resp BP Pulse Ox O2 Del Method O2 Flow Rate 98.1 F 97 16 103/72 99 Room Air 2 03/20/23 06:47 03/20/23 06:47 03/20/23 06:47 03/20/23 06:47 03/20/23 06:47 03/20/23 06:47 03/19/23 20:01 Oxygen Flow Rate (L/min) 2 Oxygen Delivery Method Room Air Weight: 161 lb 1 oz Body Mass Index (BMI) 25.9 Intake & Output: Intake and Output for Last 24 Hours 03/18/23 03/19/23 03/20/23 23:59 23:59 23:59 Intake Total 2100.5 / 2420.5 1723.5 / 1723.5 Output Total 1000 / 1000 Balance 2100.5 / 1920.5 723.5 / 723.5 Lab / Micro Data Result Diagrams: 03/19/23 09:37 03/19/23 09:37 Labs: Laboratory Results - last 24 hr 03/19/23 09:37: WBC 16.4 H, RBC 5.04, Hgb 14.7, Hct 41.4, MCV 82.1, MCH 29.2, MCHC 35.5, RDW Std Deviation 35.3, RDW Coeff of Sherry 12.0, Plt Count 284, MPV 9.4, Immature Gran % (Auto) 0.400, Neut % (Auto) 80.3 H, Lymph % (Auto) 13.3 L, [place] % (Auto) 5.1, Eos % (Auto) 0.5, Baso % (Auto) 0.4, Absolute Neuts (auto) 13.2 H, Absolute Lymphs (auto) 2.18, Nucleated RBC % 0 03/19/23 09:37: Sodium 133 L, Potassium 4.1, Chloride 99, Carbon Dioxide 25.0, Anion Gap 9, BUN 10, Creatinine 0.72, Estim Creat Clear Calc 103.07, Est GFR (MDRD) Af Amer 119, Est GFR (MDRD) Non-Af 99, BUN/Creatinine Ratio 13.9, Glucose 397 H, Calcium 9.3, Total Bilirubin 0.90, Direct Bilirubin 0.25, AST 8 L, ALT 15, Alkaline Phosphatase 83, Total Protein 7.7, Albumin 3.7, Globulin 4.0, Lipase 24 03/19/23 09:37: Hemoglobin A1c 11.3 H 03/19/23 11:00: Lactic Acid 1.7 03/19/23 11:56: Urine Color Yellow, Urine Clarity Clear, Urine pH 5.0, Ur Specific [place] 1.020, Urine Protein 15 H, Urine Glucose (UA) 1000 H, Urine Ketones 15 H, Urine Occult Blood Negative, Urine Nitrite Negative, Urine Bilirubin Negative, Urine Urobilinogen Normal, Ur Leukocyte Esterase Negative, Urine RBC 0 SEEN, Urine WBC 0 SEEN, Ur Squamous Epith Cells 0 SEEN, Urine Bacteria 0 SEEN, Urine Mucus 0 SEEN, Urine Test Negative 03/19/23 16:59: POC Glucose 218 H 03/19/23 19:01: POC Glucose 303 H 03/19/23 22:38: POC Glucose 303 H 03/20/23 04:25: POC Glucose 256 H 03/20/23 06:50: POC Glucose 251 H Radiography Diagnostic Testing: Radiology Impression Gallbladder Ultrasound 03/19/23 10:33 IMPRESSION: Cholelithiasis with a reported positive sonographic Hennessy''s sign and no gallbladder wall thickening nor pericholecystic fluid. 1.8 x 1.6 x 2.0 cm round echogenic focus within the liver which may reflect a hemangioma or possible focal fat. 0.9 x 0.8 cm right renal cyst. Electronically Signed: Norma Dickerson MD at 12:49 EDT , Abdomen/Pelvis CT 03/19/23 14:05 IMPRESSION: Acute uncomplicated appendicitis. Possible 2 cm hemangioma of the right hepatic lobe although this is not a dynamic contrast exam, necessary to confirm hemangioma. Electronically Signed: Ham Mcmillan MD at 15:25 EDT , ADDENDUM: 03/19/23 1536 IMPRESSION: Acute uncomplicated appendicitis. Possible 2 cm hemangioma of the right hepatic lobe although this is not a dynamic contrast exam, necessary to confirm hemangioma. N.B. : The above Results were Read Back by Ham Mcmillan MD to Ryan Maharaj DO, and understanding confirmed on 03/19/2023 15:29:08 (ET). Electronically Signed: Ham Mcmillan MD at 15:25 EDT , Physical Exam Const alert, oriented x3 and no apparent distress HEENT normocephalic and head/scalp atraumatic Resp normal respiratory effort Cardio regular rate GI soft to palpation; Negative for non-distended Palpation: tender other (At incisions, incisions clean dry and intact); Negative for guarding Psych mental status grossly normal Assessment & Plan Assessment/Plan (1) Acute appendicitis: (2) Diabetes: PLAN: Plan Patient tolerating diet. Pain controlled. Blood sugars still 250. Unsure patient will be able to have supplies etc. to go home today. We will check with the hospitalist. If okay with hospitalist patient will DC home today. Rebecca Lee M.D. Pager: [phone] [facility] [address] [place] [address], [address] [place] [address] Office: [phone]
--- NOTE | 2023-03-20 08:11 | DCINST_ITS ---
Discharge Instructions Diet Discharge Diet: Light diet - advance as tolerated Activity Discharge Activity: May Not Drive (while taking narcotic pain medications.) May shower in (days): 1 Lifting Restrictions: no lifting >20 lbs x 2 wks, no strenuous exercise for 4 wks Dressing / Incision Call your doctor if your incision/area has: Continuous Slow Oozing, Sudden Increased Bleeding, Increased Pain/ Swelling, Increased Redness, Foul Smelling Discharge and Swelling at the incision site Call your doctor if you observe: Fever of 101 or Higher Remove Dressing in: 2 days Cleanse incision/area with: Soap & Water Additional Dressing/Incision Instructions:: Steri-Strips will fall off in 7 to 10 days, if they do not fall off okay to remove after 10 days. Follow Up Care Please Follow Up With: Rebecca Lee MD When: Call the office for a follow-up appointment 2 weeks; after 5 PM and on the weekends call [phone] with any concerns. Test Results: Test results from this visit will be discussed in further detail at your follow- up appointment, if applicable. Discharge Plan Admission Admit Date/Time: 03/19/23 16:37 Attending Provider: Rebecca Lee Primary Care Provider: Care Physician,No Primary Consulting Providers: Maria C Knapp Discharge Orders/Prescriptions Prescriptions: New oxycodone-acetaminophen 5-325 mg tablet 1 - 2 tab PO Q6H PRN (Reason: pain) 3 Days Qty: 14 0RF Referrals / Follow Up: Care Physician,No Primary [Primary Care Provider] - Disposition Disposition (needs filled in before D/C Order can be placed): Home, Self Care
[2023-03-20] MEDS: metFORMIN HCl 500 MG Tablet PO (09:18)
--- NOTE | 2023-03-20 10:55 | PN_ITS ---
Subjective Subjective Patient seen and examined. She has no complaints. She is scheduled for one fourth appendectomy. Pain is well controlled. Review of systems otherwise negative. He has remained hemodynamically stable. Objective Data Objective Data Vital Signs: Vital Signs Temp Pulse Resp BP Pulse Ox O2 Del Method O2 Flow Rate 98.1 F 80 18 103/72 95 Room Air 2 03/20/23 06:47 03/20/23 08:00 03/20/23 08:00 03/20/23 06:47 03/20/23 08:00 03/20/23 08:00 03/19/23 20:01 Oxygen Flow Rate (L/min) 2 Oxygen Delivery Method Room Air Weight: 161 lb 1 oz Body Mass Index (BMI) 25.9 Intake & Output: Intake and Output for Last 24 Hours 03/18/23 03/19/23 03/20/23 23:59 23:59 23:59 Intake Total 2100.5 / 2420.5 1723.5 / 1723.5 Output Total 1000 / 1000 Balance 2100.5 / 1920.5 723.5 / 723.5 Lab / Micro Data Result Diagrams: 03/19/23 09:37 03/19/23 09:37 Labs: Laboratory Results - last 24 hr 03/19/23 09:37: WBC 16.4 H, RBC 5.04, Hgb 14.7, Hct 41.4, MCV 82.1, MCH 29.2, MCHC 35.5, RDW Std Deviation 35.3, RDW Coeff of Sherry 12.0, Plt Count 284, MPV 9.4, Immature Gran % (Auto) 0.400, Neut % (Auto) 80.3 H, Lymph % (Auto) 13.3 L, Murray % (Auto) 5.1, Eos % (Auto) 0.5, Baso % (Auto) 0.4, Absolute Neuts (auto) 13.2 H, Absolute Lymphs (auto) 2.18, Nucleated RBC % 0 03/19/23 09:37: Sodium 133 L, Potassium 4.1, Chloride 99, Carbon Dioxide 25.0, Anion Gap 9, BUN 10, Creatinine 0.72, Estim Creat Clear Calc 103.07, Est GFR (MDRD) Af Amer 119, Est GFR (MDRD) Non-Af 99, BUN/Creatinine Ratio 13.9, Glucose 397 H, Calcium 9.3, Total Bilirubin 0.90, Direct Bilirubin 0.25, AST 8 L, ALT 15, Alkaline Phosphatase 83, Total Protein 7.7, Albumin 3.7, Globulin 4.0, Lipase 24 03/19/23 09:37: Hemoglobin A1c 11.3 H 03/19/23 11:00: Lactic Acid 1.7 03/19/23 11:56: Urine Color Yellow, Urine Clarity Clear, Urine pH 5.0, Ur Specific [place] 1.020, Urine Protein 15 H, Urine Glucose (UA) 1000 H, Urine Ketones 15 H, Urine Occult Blood Negative, Urine Nitrite Negative, Urine Bi lirubin Negative, Urine Urobilinogen Normal, Ur Leukocyte Esterase Negative, Urine RBC 0 SEEN, Urine WBC 0 SEEN, Ur Squamous Epith Cells 0 SEEN, Urine Bacteria 0 SEEN, Urine Mucus 0 SEEN, Urine Test Negative 03/19/23 16:59: POC Glucose 218 H 03/19/23 19:01: POC Glucose 303 H 03/19/23 22:38: POC Glucose 303 H 03/20/23 04:25: POC Glucose 256 H 03/20/23 06:50: POC Glucose 251 H Micro: Microbiology 03/19/23 Unknown Aspirate - Abdominal Gram Stain - Final Radiography Diagnostic Testing: Radiology Impression Gallbladder Ultrasound 03/19/23 10:33 IMPRESSION: Cholelithiasis with a reported positive sonographic Hennessy''s sign and no gallbladder wall thickening nor pericholecystic fluid. 1.8 x 1.6 x 2.0 cm round echogenic focus within the liver which may reflect a hemangioma or possible focal fat. 0.9 x 0.8 cm right renal cyst. Electronically Signed: Norma Dickerson MD at 12:49 EDT , Abdomen/Pelvis CT 03/19/23 14:05 IMPRESSION: Acute uncomplicated appendicitis. Possible 2 cm hemangioma of the right hepatic lobe although this is not a dynamic contrast exam, necessary to confirm hemangioma. Electronically Signed: Ham Mcmillan MD at 15:25 EDT , ADDENDUM: 03/19/23 1536 IMPRESSION: Acute uncomplicated appendicitis. Possible 2 cm hemangioma of the right hepatic lobe although this is not a dynamic contrast exam, necessary to confirm hemangioma. N.B. : The above Results were Read Back by Ham Mcmillan MD to Ryan Maharaj DO, and understanding confirmed on 03/19/2023 15:29:08 (ET). Electronically Signed: Ham Mcmillan MD at 15:25 EDT , Physical Exam Const alert, oriented x3 and no apparent distress General Appearance: cooperative HEENT normocephalic Neck supple and no JVD Lymph Lymphatic: no lymphadenopathy noted Resp normal respiratory effort, normal air movement and clear to auscultation bilaterally Cardio regular rate, regular rhythm, S1 normal heart sound, S2 normal heart sound and no murmurs GI normal to inspection, nondistended, normoactive bowel sounds GI Narrative: intact dressing over left lower quadrant Extremity normal capillary refill, no clubbing, cyanosis or edema and no calf tenderness Skin General Skin Exam: no breakdown Neuro CN's II-XII intact bilaterally, no focal motor deficits, no sensory deficits n oted and deep tendon reflexes 2+ bilaterally Motor Exam: strength 5/5 throughout Psych thought process normal and cooperative Appearance: appropriate Assessment & Plan Assessment/Plan (1) Acute appendicitis: (2) Diabetes: PLAN: Plan #Acute appendicitis * management as per general surgery * patient due for surgery today. * #Diabetes mellitus * A1C is 11.7 * Blood sugar was 297. * States she was told when she was about 12-13 that she was borderline diabetic. She has never followed up with a doctor since but does have a strong history of diabetes in the family * Started on Lantus 10 units nightly today. Also start on metformin 500 mg twice daily. Patient has been taught how to administer the insulin to herself. She will be discharged home with a prescription for glucometer and insulin pens as well as needles and is to follow-up with her primary care doctor and operations boardman for medications to be adjusted as needed. * DVT prophylaxis; as per primary team Charges/Coding Visit Charges Inpatient E&M: 18929 Subs Hosp L2
[2023-03-20] MEDS: Insulin Glargine-YFGN 100 UNIT/ML Pen 10 UNIT SC (11:00)
[2023-03-20 13:03] LABS: Bedside Glucose 288 mg/dL (74-106)
== END 2023-03-20 15:46 | disposition home or self-care (01) ==
LOC: ED 15:44 → SDC 16:20 → MS3 16:21 → SDC 17:14 → MS3 17:14
PROVIDERS: Admitting Provider Surgery; Emergency Provider Emergency Medicine; Visit Provider Surgery
PROC: 0DTJ4ZZ Resection of Appendix, Percutaneous Endoscopic Approach (ICD-10-PCS; CPT 44970; principal; 2023-03-19 17:00)
DX: K35.80 Unspecified acute appendicitis (principal); E11.65 Type 2 diabetes mellitus with hyperglycemia
CPT/HCPCS: 44970; 00840; C1760; 74177; 76705; 80048; 80076; 81001; 81025; 82962; 83036; 83605; 83690; 85025; 87070; 87075; 87077; 87186; 87205; 88304; 93005; 94668; 96361; 96365; 96366; 96375; 96376; 99221; 99252; 99283; J7030; J7050; Q9967; A4216; G0378; G0463; J2405

== ENCOUNTER 2023-04-18 08:06 | Outpatient (RCR) | payer MEDICAID, SELFPAY | END 2023-05-02 23:59 | LOC: NS 08:06 | PROVIDERS: Referring Provider Internal Medicine; Visit Provider Internal Medicine | DX: Z71.3 Dietary counseling and surveillance (principal); E11.9 Type 2 diabetes mellitus without complications | CPT/HCPCS: 97802 ==

== ENCOUNTER 2023-05-18 13:25 | Outpatient (RCR) | payer MEDICAID, SELFPAY | END 2023-06-02 23:59 | LOC: NS 13:25 | PROVIDERS: Referring Provider Internal Medicine; Visit Provider Internal Medicine | DX: Z71.3 Dietary counseling and surveillance (principal); E11.9 Type 2 diabetes mellitus without complications | CPT/HCPCS: 97803 ==

== ENCOUNTER → 2023-06-23 | Outpatient (CLI) | payer MEDICAID, SELFPAY ==
[2023-06-23 12:42] LABS: Cholesterol 173 mg/dL (200); High Density Lipoprotein 38 mg/dL; Triglycerides 195 mg/dL; Very Low Density Lipoprotein 39 mg/dL (5-40)
[2023-06-23 12:55] LABS: Microalbumin,Random Urine < 5.0 mg/L (NO RANGE EST.)
== END | disposition home or self-care (01) ==
LOC: BIMLAB 09:28
PROVIDERS: PCP Internal Medicine; Referring Provider Internal Medicine; Visit Provider Internal Medicine
DX: E11.9 Type 2 diabetes mellitus without complications (principal)
CPT/HCPCS: 36415; 80061; 82043; 82570

== ENCOUNTER 2023-06-28 13:26 | Outpatient (RCR) | payer MEDICAID, SELFPAY | END 2023-07-02 23:59 | LOC: NS 13:26 | PROVIDERS: PCP Internal Medicine; Referring Provider Internal Medicine; Visit Provider Internal Medicine | DX: E11.9 Type 2 diabetes mellitus without complications (principal) | CPT/HCPCS: 97803 ==

== ENCOUNTER → 2024-12-26 | Outpatient (CLI) | payer MEDICAID, SELFPAY ==
--- NOTE | 2024-12-26 14:27 | RAD_ITS ---
EXAM: XR Pelvis, 1 or 2 Views CLINICAL INDICATION: PAIN, REMOTE SURGERY TECHNIQUE: Frontal view of the pelvis. COMPARISON: No relevant prior studies available. FINDINGS: BONES/JOINTS: Partially visualized intramedullary adria fixation with fixation screw on the right femur. Intact hardware. Anatomic position. No acute fracture. No dislocation. SOFT TISSUES: Unremarkable. RAD/Pelvis 1 or 2 Views IMPRESSION: Postoperative changes as above. Reading Location: [facility]
--- NOTE | 2024-12-26 14:27 | RAD_ITS ---
EXAM: XR Right Femur, 2 Views CLINICAL INDICATION: PAIN, REMOTE SURGERY TECHNIQUE: Frontal and lateral views of the right femur. COMPARISON: No relevant prior studies available. FINDINGS: BONES/JOINTS: Intramedullary fixation adria of the femur with proximal and distal fixation screws. Intact hardware. Anatomic position. No acute fracture. No dislocation. SOFT TISSUES: Unremarkable. RAD/Femur Min 2 Views IMPRESSION: Postoperative changes as above. Reading Location: [facility]
== END | disposition home or self-care (01) ==
LOC: MTRAD 14:27
PROVIDERS: PCP Internal Medicine; Referring Provider Internal Medicine; Visit Provider Internal Medicine
DX: M79.604 Pain in right leg (principal)
CPT/HCPCS: 72170; 73552

== ENCOUNTER → 2024-12-27 | Outpatient (CLI) | payer MEDICAID, SELFPAY ==
[2024-12-27 08:35] LABS: Absolute Lymphocyte Count 3.15 X10^3/uL (0.83-4.51); Absolute Neutrophil Count 4.5 X10^3/uL (2.0-7.7); Basophil# 0.05 X10^3/uL; Basophil% 0.6 % (0-1); Eosinophil# 0.17 X10^3/uL; Hematocrit 39.5 % (37-47); Hemoglobin 13.2 g/dL (12.0-15.0); Lymphocyte # 3.15 X10^3/ul (0.83-4.51); Lymphocyte % 36.8 % (19-41); Mean Corp Hgb Conc 33.4 g/dL (32-36); Mean Corpuscular Hgb 27.7 pg (27.0-32.0); Mean Corpuscular Volume 82.8 fL (81-99); Mean Platelet Vol. 8.9 fl (6.2-12.0); Monocyte# 0.65 X10^3/uL; Monocyte% 7.6 % (0-10); NRBC Flagged by Analyzer 0 % (0-5); Neutrophil % 52.5 % (47-70); Platelet Count 249 K/mm3 (150-450); RBC Distribution Width SD 36.8 fl (35.1-43.9); Red Blood Count 4.77 M/mm3 (4.2-5.4); White Blood Count 8.6 K/mm3 (4.4-11.0)
[2024-12-27 09:46] LABS: ALB/GLOB Ratio 1.3 RATIO (0.9-2.4); AST(SGOT) 19 U/L (<=31); Alanine Aminotransfer ALT/SGPT 14 U/L (<=34); Albumin, Serum 4.1 g/dL (3.5-5.0); Alkaline Phosphatase 93 U/L (35-104); Anion Gap 9 (5-15); BUN 16 mg/dL (4-19); BUN/Creat Ratio 26.5 RATIO (10-20); Calcium,Total 8.9 mg/dL (7.6-11.0); Carbon Dioxide 25.2 mmol/L (21.0-32.0); Chloride 99 mmol/L (98-108); Creatinine, Serum 0.59 mg/dL (0.70-1.20); EST Glomerular Filtration Rate 120 (>60); Globulin 3.1 g/dL (2.2-4.2); Glucose 186 mg/dL (70-99); Potassium 4.1 mmol/L (3.3-5.1); Protein, Total 7.2 g/dL (5.9-8.4); Sodium Level 133 mmol/L (133-145); Total Bilirubin 0.33 mg/dL (0.00-1.30)
[2024-12-27 11:39] LABS: Cholesterol 206 mg/dL (<=200); High Density Lipoprotein 41 mg/dL; Low Density Lipoprotein Calc. 87 mg/dL; Triglycerides 391 mg/dL; Very Low Density Lipoprotein 78 mg/dL (5-40); cholesterol:hdl ratio screen 5.04
[2024-12-27 11:56] LABS: Microalbumin,Random Urine < 12.0 mg/L (NO RANGE EST.); Microalbumin:Creatinine Ratio UNABLE TO CALCULATE mg/g CRE
== END | disposition home or self-care (01) ==
LOC: LAB 07:46
PROVIDERS: PCP Internal Medicine; Referring Provider Internal Medicine Endocrinology, Diabetes & Metabolism; Visit Provider Internal Medicine Endocrinology, Diabetes & Metabolism
DX: E11.65 Type 2 diabetes mellitus with hyperglycemia (principal); Z79.4 Long term (current) use of insulin
CPT/HCPCS: 36415; 80053; 80061; 82043; 82570; 84443; 85025